=== PATIENT | male | born 1995 | race Caucasian/White ===

== ENCOUNTER 2018-05-25 13:45 | Emergency (ER) | payer OTHER ==
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
[2018-05-25 15:46] VITALS: BP 120/77; PULSE 61; RESP 18; TEMP 98.1
== END 2018-05-25 15:45 | disposition home or self-care (01) ==
LOC: EC 13:45
DX: S01.01XA Laceration without foreign body of scalp, initial encounter (principal); W20.8XXA Other cause of strike by thrown, projected or falling object, initial encounter; Y92.69 Other specified industrial and construction area as the place of occurrence of the external cause; Y99.0 Civilian activity done for income or pay
CPT/HCPCS: 99283